=== PATIENT | male | born 1985 | race Caucasian/White ===

== ENCOUNTER 2022-09-21 19:31 | Emergency (ER) | payer OTHER ==
[~2022-09-21] VITALS: Ht 182.9 cm; Wt 66.4 kg
[~2022-09-21 19:31] MED LIST: ALBU90I INH; ALBU90OI INH; AMOX500 PO; BENZ10TG MC; CITA10S PO; CYCL10 PO; Cephalexin250 MG/5 M PO; DIAZ5 PO; FAMO40 PO; HYDACE5 PO; HYDACE5325 PO; IBUHYD PO; IBUP800; IBUP800 PO; KETO10 PO; Monodox100 MG PO; NAPR550 PO; OMEP20ER PO; ONDA4ODT MM; OXYACE5T PO; PENVK500 PO; PROM25 PO; RANI150 PO; RXNAPNA550 PO; RXOXYACE PO; RXPROM25 PO; SPACE CHAMBER1 EACH MC; SULTRIDS PO; TRAM50 PO; Ultram50 MG PO
[2022-09-21 19:41] VITALS: BP 149/95
[2022-09-21] MEDS ORDERED: PREG150 PO (21:37)
== END 2022-09-21 21:52 | disposition home or self-care (01) ==
LOC: ER 19:31
DX: G62.9 Polyneuropathy, unspecified (principal); F17.210 Nicotine dependence, cigarettes, uncomplicated; Z79.899 Other long term (current) drug therapy
CPT/HCPCS: 99283; A9270

== ENCOUNTER 2022-10-15 17:02 | Emergency (ER) | payer OTHER ==
[~2022-10-15] VITALS: Ht 182.9 cm; Wt 72.6 kg
[~2022-10-15 17:02] MED LIST changes: +PREG150 PO
[2022-10-15 17:33] VITALS: BP 123/91
[2022-10-15 17:44] LABS: BASOPHILS ABSOLUTE AUTO 0.08 K/mm3 (0.00-0.23); BASOPHILS PERCENT AUTO 2 % (0-2); EOSINOPHILS ABSOLUTE AUTO 0.12 K/mm3 (0.00-0.68); EOSINOPHILS PERCENT AUTO 3 % (0-6); Hematocrit 45.6 % (37.0-53.0); IMMATURE GRAN ABSOLUTE AUTO 0.02 K/mm3 (0.00-0.10); IMMATURE GRAN PERCENT AUTO 0 % (0-1); LYMPHOCYTES ABSOLUTE AUTO 1.25 K/mm3 (0.84-5.20); LYMPHOCYTES PERCENT AUTO 26 % (21-46); MONOCYTES ABSOLUTE AUTO 0.25 K/mm3 (0.16-1.47); MONOCYTES PERCENT AUTO 5 % (4-13); Mean Corpuscular HGB 30.6 pg (26.0-34.0); Mean Corpuscular HGB Conc 35.1 g/dL (31.5-36.5); Mean Corpuscular Volume 87 fL (80-100); Mean Platelet Volume 9.4 fL (9.1-12.4); NEUTROPHILS ABSOLUTE AUTO 3.03 K/mm3 (1.96-9.15); NEUTROPHILS PERCENT AUTO 64 % (41-73); Platelet Count 202 K/mm3 (150-400); RDW Coefficient Variation 13.5 % (11.7-14.2); RDW Standard Deviation 42.5 fL (35.1-46.3); Red Blood Cell Count 5.23 M/mm3 (4.30-5.90); White Blood Cell Count 4.75 K/mm3 (4.00-11.30)
[2022-10-15 18:09] LABS: Albumin, Blood 3.3 g/dL (3.4-5.0); Albumin/Globulin Ratio 0.9 (0.8-1.8); Bilirubin, Total 0.3 mg/dL (0.1-1.0); Bun/Creatinine Ratio 11.4 (12.0-20.0); Calcium, Blood 8.2 mg/dL (8.5-10.1); Creatinine, Blood 0.96 mg/dL (0.60-1.20); Globulin, Blood 3.8 g/dL (2.2-4.0); Potassium, Blood 3.5 mmol/L (3.5-5.5); Total Protein, Blood 7.1 g/dL (6.4-8.2)
== END 2022-10-15 19:02 | disposition home or self-care (01) ==
LOC: ER 17:02
PROVIDERS: Physician Assistant
DX: F15.959 Other stimulant use, unspecified with stimulant-induced psychotic disorder, unspecified (principal); K21.9 Gastro-esophageal reflux disease without esophagitis; F17.200 Nicotine dependence, unspecified, uncomplicated
CPT/HCPCS: 80053; 83690; 85025; J7030

== ENCOUNTER 2024-01-06 04:07 | Emergency (ER) | payer OTHER ==
[~2024-01-06] VITALS: Ht 182.9 cm; Wt 68.0 kg
[2024-01-06 04:12] VITALS: BP 113/82
[2024-01-06] MEDS ORDERED: Ketorolac Tromethamine 15mg Vial IM ONE (04:55)
[2024-01-06 04:59] LABS: BASOPHILS ABSOLUTE AUTO 0.02 K/mm3 (0.00-0.23); BASOPHILS PERCENT AUTO 0 % (0-2); EOSINOPHILS ABSOLUTE AUTO 0.07 K/mm3 (0.00-0.68); EOSINOPHILS PERCENT AUTO 1 % (0-6); Hematocrit 34.4 % (37.0-53.0); Hemoglobin 11.5 g/dL (13.5-17.5); IMMATURE GRAN ABSOLUTE AUTO 0.02 K/mm3 (0.00-0.10); IMMATURE GRAN PERCENT AUTO 0 % (0-1); LYMPHOCYTES ABSOLUTE AUTO 1.59 K/mm3 (0.84-5.20); LYMPHOCYTES PERCENT AUTO 31 % (21-46); MONOCYTES ABSOLUTE AUTO 0.61 K/mm3 (0.16-1.47); MONOCYTES PERCENT AUTO 12 % (4-13); Mean Corpuscular HGB 27.8 pg (26.0-34.0); Mean Corpuscular HGB Conc 33.4 g/dL (31.5-36.5); Mean Corpuscular Volume 83 fL (80-100); Mean Platelet Volume 9.8 fL (9.1-12.4); NEUTROPHILS ABSOLUTE AUTO 2.77 K/mm3 (1.96-9.15); NEUTROPHILS PERCENT AUTO 55 % (41-73); Platelet Count 229 K/mm3 (150-400); RDW Coefficient Variation 16.8 % (11.7-14.2); RDW Standard Deviation 51.5 fL (35.1-46.3); Red Blood Cell Count 4.13 M/mm3 (4.30-5.90); White Blood Cell Count 5.08 K/mm3 (4.00-11.30)
[2024-01-06 05:21] LABS: Albumin/Globulin Ratio 0.6 (0.8-1.8); Bilirubin, Total 0.4 mg/dL (0.1-1.0); Bun/Creatinine Ratio 16.9 (12.0-20.0); C-REACTIVE PROTEIN, EXT RANGE 4.64 mg/dL (0.000-0.300); Calcium, Blood 8.4 mg/dL (8.5-10.1); Creatinine, Blood 0.95 mg/dL (0.60-1.20); Globulin, Blood 5.2 g/dL (2.2-4.0); Potassium, Blood 3.6 mmol/L (3.5-5.5); Total Protein, Blood 8.2 g/dL (6.4-8.2)
[2024-01-06] MEDS ORDERED: CEPH500 PO (06:09)
[2024-01-06] MEDS ORDERED: SULTRIDS PO (06:09)
== END 2024-01-06 06:34 | disposition home or self-care (01) ==
LOC: ER 04:07
PROVIDERS: Physician Assistant
DX: L02.611 Cutaneous abscess of right foot (principal); L03.115 Cellulitis of right lower limb; B20 Human immunodeficiency virus [HIV] disease; F43.10 Post-traumatic stress disorder, unspecified; K21.9 Gastro-esophageal reflux disease without esophagitis; F17.210 Nicotine dependence, cigarettes, uncomplicated; Z79.899 Other long term (current) drug therapy
CPT/HCPCS: 10060; 73630; 80053; 85025; 85651; 86140; 86592; 96372; 99283-25; J1885

== ENCOUNTER → 2024-02-11 | Outpatient (CLI) | payer OTHER ==
[~2024-02-11] MED LIST changes: +CEPH500 PO
== END ==
LOC: LAB 19:04 → LAB SHORT 19:04
DX: L02.416 Cutaneous abscess of left lower limb (principal)
CPT/HCPCS: 87070; 87075; 87077; 87186; 87205

== ENCOUNTER → 2024-04-02 | Outpatient (CLI) | payer OTHER | LOC: LAB SHORT 17:41 → LAB 17:41 | DX: L03.119 Cellulitis of unspecified part of limb (principal) | CPT/HCPCS: 87070; 87077; 87147; 87186; 87205 ==

== ENCOUNTER 2024-11-22 23:17 | Inpatient (IN) | payer OTHER ==
[~2024-11-22] VITALS: Ht 180.3 cm; Wt 46.9 kg
[2024-11-23] MEDS ORDERED: Ondansetron HCl 2 MG / ML 2ML Vial IV ONE (00:40)
[2024-11-23 01:00] LABS: BASOPHILS ABSOLUTE AUTO 0.04 K/mm3 (0.00-0.23); BASOPHILS PERCENT AUTO 1 % (0-2); EOSINOPHILS ABSOLUTE AUTO 0.01 K/mm3 (0.00-0.68); EOSINOPHILS PERCENT AUTO 0 % (0-6); Hematocrit 26.6 % (37.0-53.0); Hemoglobin 8.6 g/dL (13.5-17.5); IMMATURE GRAN ABSOLUTE AUTO 0.06 K/mm3 (0.00-0.10); IMMATURE GRAN PERCENT AUTO 1 % (0-1); LYMPHOCYTES ABSOLUTE AUTO 0.81 K/mm3 (0.84-5.20); LYMPHOCYTES PERCENT AUTO 11 % (21-46); MONOCYTES ABSOLUTE AUTO 0.62 K/mm3 (0.16-1.47); MONOCYTES PERCENT AUTO 9 % (4-13); Mean Corpuscular HGB Conc 32.3 g/dL (31.5-36.5); Mean Corpuscular Volume 83 fL (80-100); NEUTROPHILS ABSOLUTE AUTO 5.71 K/mm3 (1.96-9.15); NEUTROPHILS PERCENT AUTO 79 % (41-73); NRBC ABSOLUTE 0.00 K/mm3 (0.00-0.02); NRBC Auto 0.0 /100 WBC (0.0-0.2); Platelet Count 265 K/mm3 (150-400); RDW Coefficient Variation 18.1 % (11.7-14.2); RDW Standard Deviation 55.3 fL (35.1-46.3)
[2024-11-23 01:20] LABS: Alanine Aminotransfer (ALT/SGP 12.0 U/L (12-78); Albumin, Blood 1.6 g/dL (3.4-5.0); Albumin/Globulin Ratio 0.3 (0.8-1.8); Anion Gap 8.0 mmol/L (3-11); Aspartate Aminotrans (AST/SGOT 17.0 U/L (12-37); Bilirubin, Total 0.1 mg/dL (0.1-1.0); Blood Urea Nitrogen 15.0 mg/dL (8-24); CO2, Blood 28.0 mmol/L (21-32); Calcium, Blood 7.9 mg/dL (8.5-10.1); Chloride, Blood 95.0 mmol/L (98-108); Creatinine, Blood 0.86 mg/dL (0.60-1.20); Globulin, Blood 5.5 g/dL (2.2-4.0); Glucose, Blood 120.0 mg/dL (70-99); Potassium, Blood 4.2 mmol/L (3.5-5.5); Sodium, Blood 127.0 mmol/L (136-145); Total Protein, Blood 7.1 g/dL (6.4-8.2)
[2024-11-23] MEDS ORDERED: OXYC5 PO (03:48)
[2024-11-23] MEDS ORDERED: METO5A PO ×2 (03:52→17:01)
[2024-11-23] MEDS ORDERED: BUSP10 PO (03:57)
[2024-11-23] MEDS ORDERED: BIKTARVY 50-201 EAC1 PO ×2 (03:59→16:48)
[2024-11-23] MEDS ORDERED: HYDROmorphone HCl/Pf 1MG SYR IV PRN (04:20)
[2024-11-23] MEDS ORDERED: OxyCODONE 7.5 mg/Acetam 325 mg TABLET PO PRN (04:25)
[2024-11-23] MEDS ORDERED: NS 1,000 ML IV SCH ×2 (04:25→11:25)
[2024-11-23 04:38] VITALS: BP 89/61
[2024-11-23] MEDS ORDERED: Albuterol HFA200 ACT/6.7 GM INH INH PRN (04:50)
[2024-11-23] MEDS ORDERED: Phenol/Sodium Phenolate Oral Spray 180 ML MM PRN (05:00)
[2024-11-23] MEDS ORDERED: ESCI20 PO (05:10)
[2024-11-23] MEDS ORDERED: FOLI1 PT (05:11)
[2024-11-23] MEDS ORDERED: MIRT15ST PO ×2 (05:11→17:02)
[2024-11-23] MEDS ORDERED: SULTRIL10 PO (05:12)
[2024-11-23] MEDS ORDERED: B-1100 M1 PO ×2 (05:12→17:08)
[2024-11-23] MEDS ORDERED: TIVICAY50 MG PO (05:14)
[2024-11-23] MEDS ORDERED: DRON5 PO (05:14)
[2024-11-23] MEDS ORDERED: Prevacid Soluta30 MG JT (05:16)
[2024-11-23] MEDS ORDERED: EMTRICITABINE-1 EACH PO (05:16)
[2024-11-23] MEDS ORDERED: [UNRECOGNIZED DRUG - OTHER] PO (05:19)
[2024-11-23] MEDS ORDERED: OLAN5 PO ×2 (05:19→17:05)
[2024-11-23 07:46] LABS: Anion Gap 7.0 mmol/L (3-11); Blood Urea Nitrogen 15.0 mg/dL (8-24); CO2, Blood 30.0 mmol/L (21-32); Calcium, Blood 8.1 mg/dL (8.5-10.1); Chloride, Blood 95.0 mmol/L (98-108); Creatinine, Blood 0.79 mg/dL (0.60-1.20); Glucose, Blood 112.0 mg/dL (70-99); Potassium, Blood 4.3 mmol/L (3.5-5.5); Sodium, Blood 128.0 mmol/L (136-145)
[2024-11-23 07:57] VITALS: BP 101/68
[2024-11-23 08:30] LABS: Ferritin, Serum 1952.0 ng/mL (26-388); Total Iron Binding Capacity 160.0 ug/dL (250-450)
[2024-11-23] MEDS ORDERED: Misc. Tablet PO SCH (09:00)
[2024-11-23] MEDS ORDERED: Enoxaparin 40 MG/0.4 ML SYR SC SCH (09:00)
[2024-11-23] MEDS ORDERED: Magnesium Hydroxide Conc 10 ML UDC PT PRN (10:55)
[2024-11-23] MEDS ORDERED: Docusate Sodium Liquid 100 MG UDC PT PRN (10:55)
[2024-11-23] MEDS ORDERED: Cyanocobalamin 1000 MCG/ML 1ML Vial IM SCH (13:00)
[2024-11-23] MEDS ORDERED: Protein Supplement 30 ML UD PT SCH (14:00)
[2024-11-23 15:12] VITALS: BP 103/75
[2024-11-23] MEDS ORDERED: ACET500 PO (16:44)
[2024-11-23] MEDS ORDERED: AZIT250 PO ×2 (16:45)
[2024-11-23] MEDS ORDERED: BENMENLOZ (16:46)
[2024-11-23] MEDS ORDERED: Cyclobenzaprine5 MG PO (16:49)
[2024-11-23] MEDS ORDERED: HYDMOR2 PO (16:53)
[2024-11-23] MEDS ORDERED: IBUP800 PO (16:54)
[2024-11-23] MEDS ORDERED: Prevacid Soluta30 MG PO (16:56)
[2024-11-23] MEDS ORDERED: IMODIUM A-D2 M1 PO (16:59)
[2024-11-23] MEDS ORDERED: Ativan1 MG PO (17:00)
[2024-11-23] MEDS ORDERED: MIDO5 PO (17:02)
[2024-11-23] MEDS ORDERED: NICO21TP TOP (17:04)
[2024-11-23] MEDS ORDERED: MUPIROCIN1 G1 TOP (17:04)
[2024-11-23] MEDS ORDERED: PRAZ2 PO (17:06)
[2024-11-23] MEDS ORDERED: RIFA300 PO (17:06)
[2024-11-23] MEDS ORDERED: SODBIC650 PO (17:07)
[2024-11-23] MEDS ORDERED: TERB250 PO (17:08)
[2024-11-23] MEDS ORDERED: TRAZ50 PO (17:09)
--- NOTE | 2024-11-23 18:35 | NUR ---
SHIFT SUMMARY PT AOX4, COOPERATIVE, ABLE TO MAKE NEEDS KNOWN. PT IS 1 PERSON ASSIST BUT UNABLE TO WALK DUE TO PAIN IN FEET. PEG TUBE FEEDINGS PER ORDER 65ML CONT WITH 30ML FLUSH Q4H. NS RUNNING 150ML/HR PER ORDER FOR HYPONATREMIA. PT ON ISO FOR HX OF MRSA IN 2023, NO CURRENT OPEN AREAS. BED IN LOWEST POSITION, CALL LIGHT WITHIN REACH.
[2024-11-23 20:12] VITALS: BP 106/70
[2024-11-24 02:59] VITALS: BP 105/79
--- NOTE | 2024-11-24 05:05 | NUR ---
SHIFT SUMMARY PATIENT A/OX4, PLEASANT AND COOPERATIVE THROUGHOUT SHIFT. MEDICATED FOR PAIN PER EMAR. PT REPORTED NAUSEA, FEEDING PAUSED X1 HOUR PER PT REQUEST AND PT WAS GIVEN PHENERGAN PER EMAR. NO ACUTE CHANGES THROUGHOUT SHIFT. VOIDING WELL. CALL LIGHT IN REACH, BED IN LOWEST POSITION. WILL REPORT TO ONCOMING RN.
[2024-11-24 08:13] VITALS: BP 107/77
[2024-11-24 14:01] LABS: BASOPHILS ABSOLUTE AUTO 0.04 K/mm3 (0.00-0.23); BASOPHILS PERCENT AUTO 1 % (0-2); EOSINOPHILS ABSOLUTE AUTO 0.01 K/mm3 (0.00-0.68); EOSINOPHILS PERCENT AUTO 0 % (0-6); Hematocrit 28.7 % (37.0-53.0); Hemoglobin 9.1 g/dL (13.5-17.5); IMMATURE GRAN ABSOLUTE AUTO 0.09 K/mm3 (0.00-0.10); IMMATURE GRAN PERCENT AUTO 1 % (0-1); LYMPHOCYTES ABSOLUTE AUTO 0.94 K/mm3 (0.84-5.20); LYMPHOCYTES PERCENT AUTO 11 % (21-46); MONOCYTES ABSOLUTE AUTO 0.57 K/mm3 (0.16-1.47); MONOCYTES PERCENT AUTO 7 % (4-13); Mean Corpuscular HGB Conc 31.7 g/dL (31.5-36.5); Mean Corpuscular Volume 85 fL (80-100); NEUTROPHILS ABSOLUTE AUTO 6.89 K/mm3 (1.96-9.15); NEUTROPHILS PERCENT AUTO 81 % (41-73); NRBC ABSOLUTE 0.00 K/mm3 (0.00-0.02); NRBC Auto 0.0 /100 WBC (0.0-0.2); Platelet Count 323 K/mm3 (150-400); RDW Coefficient Variation 18.2 % (11.7-14.2); RDW Standard Deviation 56.2 fL (35.1-46.3)
[2024-11-24 14:19] LABS: Anion Gap 8.0 mmol/L (3-11); Blood Urea Nitrogen 14.0 mg/dL (8-24); CO2, Blood 28.0 mmol/L (21-32); Calcium, Blood 8.3 mg/dL (8.5-10.1); Chloride, Blood 98.0 mmol/L (98-108); Creatinine, Blood 0.64 mg/dL (0.60-1.20); Glucose, Blood 75.0 mg/dL (70-99); Magnesium, Blood 1.9 mg/dL (1.6-2.4); Phosphorus, Blood 3.1 mg/dL (2.5-4.9); Potassium, Blood 4.0 mmol/L (3.5-5.5); Sodium, Blood 130.0 mmol/L (136-145)
[2024-11-24] MEDS ORDERED: [UNRECOGNIZED DRUG - OTHER] PO SCH (16:00)
--- NOTE | 2024-11-24 19:19 | NUR ---
PT A&OX4, VSS, RA, NON TELE. MEDS CRUSHED IN PEG TUBE. LOOSE BM X2. TUBE FEEDING PAUSED FOR ABDOMINAL DISCOMFORT, NOTIFIED. 1PA TO BSC. PT WORKED WITH PATIENT WALKED IN HALLS. ORAL INTAKE IMPROVING. CALL LIGHT IN REACH.
[2024-11-24 19:24] VITALS: BP 93/61
[2024-11-25 02:56] VITALS: BP 104/71
--- NOTE | 2024-11-25 04:38 | NUR ---
CHRIS SUMMARY PATIENT A/OX4. PLEASANT AND COOPERATIVE WITH CARE. PT REPORTS ABDOMINAL DISCOMFORT AND REQUESTED THAT HIS FEEDING BE PUT ON HOLD. NAUSEA MEDICATION GIVEN WITH MEDICATIONS VIA PEG TUBE. MEDICATED WITH PAIN MEDICATION AT SCHEDULED TIME AND NO OTHER COMPLAINTS OF PAIN. VITAL SIGNS STABLE. PT EATING FOOD PO THROUGHOUT SHIFT AND DRINKING WATER. NO ACUTE CHANGES THROUGHOUT SHIFT. CALL LIGHT IN REACH AND BED IN LOWEST POSITION. WILL REPORT TO ONCOMING RN.
[2024-11-25 07:03] LABS: Anion Gap 8.0 mmol/L (3-11); Blood Urea Nitrogen 12.0 mg/dL (8-24); CO2, Blood 25.0 mmol/L (21-32); Calcium, Blood 7.8 mg/dL (8.5-10.1); Chloride, Blood 107.0 mmol/L (98-108); Creatinine, Blood 0.71 mg/dL (0.60-1.20); Glucose, Blood 84.0 mg/dL (70-99); Magnesium, Blood 2.0 mg/dL (1.6-2.4); Phosphorus, Blood 3.1 mg/dL (2.5-4.9); Potassium, Blood 3.9 mmol/L (3.5-5.5); Sodium, Blood 136.0 mmol/L (136-145)
[2024-11-25 08:07] VITALS: BP 113/82
[2024-11-25] MEDS ORDERED: [UNRECOGNIZED DRUG - OTHER] PO SCH (08:30)
[2024-11-25] MEDS ORDERED: Trimethoprim 80MG/Sulfamethoxazole 400MG/10ML UDC PO SCH (09:00)
[2024-11-25] MEDS ORDERED: Nystatin 100,000 Unit/ML Susp 5 ML UDC PO SCH (09:00)
[2024-11-25] MEDS ORDERED: Folic Acid 1 MG TAB PT SCH (09:00)
[2024-11-25 15:06] VITALS: BP 105/69
--- NOTE | 2024-11-25 15:37 | NUR ---
Upon receiving a referral for spiritual care, I visited the patient. The patient immediately tells me about his medical issues, the of his by suicide and the slippery slope he has been on emotionally since his . He tells me that he if goes back home by himself he "will not survive." He also shares about his spiritual distress and the love/hate relationship that he has with God. We unpack that idea a bit as I supply some theological insights. He also requests to have a Bible, so I go down to the spiritual care office to acquire a Bible for him. He voices great appreciation for it. I also provided spiritual guidance and prayer. The patient responded well and showed signs of greater peace with God and man. I will continue to remain available to the patient and the family.
[2024-11-25] MEDS ORDERED: B-12500 MC2 PO (16:02)
[2024-11-25] MEDS ORDERED: NYSTATIN100000 U13 MT (16:04)
[2024-11-25] MEDS ORDERED: ONDA4 PO (16:04)
[2024-11-25] MEDS ORDERED: LIQUICEL PT (16:07)
[2024-11-25 19:39] VITALS: BP 123/91
--- NOTE | 2024-11-25 19:48 | NUR ---
SHIFT SUMMARY PT A&OX4, VSS, RA, NON-TELE. COOPERATIVE WITH CARE. TUBE FEED HELD UNTIL AFTERNOON D/T ABDOMINAL DISCOMFORT. PT ATE BREAKFAST, FAMILY BROUGHT IN SPANISH FOOD FOR PT LUNCH. PT HAD ONE LOOSE BM THIS SHIFT, URINATING IN URINAL, ACTIVITY ENCOURAGED. CALL LIGHT IN REACH.
[2024-11-26 02:37] VITALS: BP 107/63
--- NOTE | 2024-11-26 04:38 | NUR ---
SHIFT SUMMARY PATIENT A/OX4. PLEASANT AND COOPERATIVE WITH CARE. VITAL SIGNS REMAINED STABLE THROUGHOUT THE SHIFT. PATIENT ABLE TO TOLERATE PO INTAKE, WHILE HIS TUBE FEEDING IS TURNED OFF. ALL MEDICATIONS GIVEN VIA PEG TUBE. NS RUNNING AT 150 MLS/HR. TUBE FEEDING RESTARTED THIS AM AT APPROX 0330. PT TOLERATING WELL. MEDICATED FOR PAIN PER EMAR. VOIDING WELL, IND WITH THE URINAL. NO ACUTE CHANGES THROUGHOUT SHIFT. CALL LIGHT IN REACH AND BED IN LOWEST POSITION. WILL REPORT TO ONCOMING RN.
[2024-11-26 06:37] LABS: Anion Gap 8.0 mmol/L (3-11); Blood Urea Nitrogen 9.0 mg/dL (8-24); CO2, Blood 23.0 mmol/L (21-32); Calcium, Blood 7.5 mg/dL (8.5-10.1); Chloride, Blood 111.0 mmol/L (98-108); Creatinine, Blood 0.74 mg/dL (0.60-1.20); Glucose, Blood 93.0 mg/dL (70-99); Magnesium, Blood 1.7 mg/dL (1.6-2.4); Phosphorus, Blood 3.0 mg/dL (2.5-4.9); Potassium, Blood 3.4 mmol/L (3.5-5.5); Sodium, Blood 139.0 mmol/L (136-145)
[2024-11-26 07:44] VITALS: BP 116/82
[2024-11-26] MEDS ORDERED: Metoclopramide HCl 5MG / ML 2ML Vial IV PRN (13:55)
[2024-11-26] MEDS ORDERED: Trimethoprim/Sulfamethoxazole DS Tab PO ONE (15:55)
[2024-11-26 16:00] VITALS: BP 115/78
[2024-11-26] MEDS ORDERED: Emtricitabine/Tenofovir (TDF) 200-300mg 1 TAB PO SCH (17:00)
[2024-11-26] MEDS ORDERED: Azithromycin 200 MG/5 ML SUSP 5ML UDC PO SCH (18:00)
[2024-11-26] MEDS ORDERED: Simethicone 40 MG/0.6 ML 30ML BTL PT PRN (19:45)
[2024-11-26 19:57] VITALS: BP 119/79
--- NOTE | 2024-11-26 20:46 | NUR ---
SHIFT SUMMARY- PT HAS HAD MANY CHANGES T/O THJE SHIFT. MEDICATED WITH PRN PAIN AND NAUSEA MEDS. HE HAD A TELEHEALTH APPOINTMENT. DR DOUGLAS AND HIS TEAM WERE PROVIDED WITH THE CONTACT INFO FOR DR LITTLEJOHN THE PT INFECTIOUS DISEASE DR FROM [facility]. HE HAD SUGGESTIONS FOR LAB WORK, AND MEDICATIONS THAT THE PT NEEDS FOR HIS HIV. BEDSIDE REPORT COMPLETED WITH THE NIGHT RN. THE PT HAS MEDS ORDERED BUT THIS RN WAS UNABLE TO ADMINISTER D/T EMERGENT ISSUES WITH OTHER PATIENTS. NIGHT RN IS AWARE AND WILL ADMINISTER.
[2024-11-27 04:42] VITALS: BP 125/83
--- NOTE | 2024-11-27 05:31 | NUR ---
SHIFT SUMMARY: Pt is admitted for hyponatremia and is a full code. Is alert and about to make needs known. Pain has been managed with PRN medications. On ISO for MRSA. iv to right AC is patent and running ns at 150.
[2024-11-27] MEDS ORDERED: TENOFOVIR PO SCH (09:00)
[2024-11-27] MEDS ORDERED: EMTRICITABINE PO SCH (09:00)
[2024-11-27 09:17] VITALS: BP 116/85
--- NOTE | 2024-11-27 18:28 | NUR ---
SHIFT SUMMARY- PT ALERT ANND ORIENTED, HE HAS BEEN INDEPENDENT IN THE ALBERTO WITH THE FWW AND GATE BELT. PT HAS NOT BEEN TOLLERATING HIS TUBE FEEDINGS VERY WELL. HE HAD THREE SMALL RED SPOTS ON HIS RIGHT SIDE YESTERDAY. THIS EVENING HE WAS NOT WEARING HIS GOWN AND WAS VISITING WITH FAMILY HE CALLED FOR THE RN TO LOOK AT SOME PAINFULLL SPOTS ON HIS SIDE. UPON LOOKING AT THE SPOTS THEY WERE NOTED TO BE RAISED AND FLUID FILLED. THE PT STATES THEY ARE VERY PAINFUL AND THEN STATED "I HOPE THEY ARE NOT SHINGLES AGAIN, I'VE HAD THOSE BEFORE AND THEY HURT." CALLED DR DOUGLAS AND SPOKE TO HIM. HE STATED TO PLACE THE PT INTO ISOLATION FOR SHINGLES AND HE WILL DO AN ASSESSMENT OF THE AREA TOMORROW MORNING. PT WAS TRANSFERED TO ROOM 335 FOR AIRBORN PRECAUTIONS. PT IS UP IN THE ROOM INDEPENDENT. TUBE FEEDINGS WERE CHANGED TO NIGHT TIME FEEDINGS. PT IN THE ROOM WITH HIS VISITORS NO S&S OF DISTRESS AT THIS TIME.
[2024-11-27 20:35] VITALS: BP 114/71
[2024-11-27] MEDS ORDERED: Protein Supplement 30 ML UD PT SCH (21:00)
[2024-11-28 04:42] VITALS: BP 120/75
--- NOTE | 2024-11-28 06:26 | NUR ---
SHIFT SUMMARY: Pt is admitted for hyponatremia and is a full code. Is alert and about to make needs known. Pain has been managed with PRN medications. On ISO for MRSA and shingals. iv to right AC is patent and running ns at 150. Has J/G tube placed. Has been running jevity 1.2 at 80ml/h through the night.
[2024-11-28 07:33] VITALS: BP 97/62
[2024-11-28 08:01] LABS: Anion Gap 8.0 mmol/L (3-11); Blood Urea Nitrogen 11.0 mg/dL (8-24); CO2, Blood 22.0 mmol/L (21-32); Calcium, Blood 7.9 mg/dL (8.5-10.1); Chloride, Blood 109.0 mmol/L (98-108); Creatinine, Blood 0.76 mg/dL (0.60-1.20); Glucose, Blood 90.0 mg/dL (70-99); Potassium, Blood 4.1 mmol/L (3.5-5.5); Sodium, Blood 135.0 mmol/L (136-145)
[2024-11-28] MEDS ORDERED: Trimethoprim/Sulfamethoxazole DS Tab PO SCH (09:00)
[2024-11-28] MEDS ORDERED: ACYCLOVIR IV SCH (10:33)
[2024-11-28] MEDS ORDERED: DEXTROSE 5% IV SCH (10:33)
[2024-11-28 15:05] VITALS: BP 125/75
[2024-11-28 16:21] LABS: % CD4 7 % (32-64); ABSOLUTE CD4 77 cells/uL (430-1800)
--- NOTE | 2024-11-28 18:28 | NUR ---
SHIFT SUMMARY PATIENT A/OX4, ABLE TO MAKE NEEDS KNOWN. PLEASANT AND COOPERATIVE WITH CARE HOWEVER, WITHDRAWN AT TIMES. PATIENT TOLERATING MEALS WELL, REQUESTING SNACKS. J/G TUBE IN PLACE, FUNCTIONING PROPERLY WITH MEDICATION ADMINISTRATION. TUBE FEEDING NIGHTLY. IV FLUIDS RUNNING PER JUL. ON AIRBORN PRECAUTIONS FOR ACTIVE SHINGLES RASH. RASH TO RIGHT ABDOMEN AND FLANK, FLUID FILLED BLISTERS. ACOCLOVYR STARTED TODAY WELL PATIENT S LYRICA BEING INCREASED. PATIENT COMPLAINING OF DIARRHEA THROUGHOUT THE SHIFT. PRN IMMODIUM ADMINISTERED PER JUL. ALSO COMPLAINING OF ANXIETY THIS AFTERNOON, PRN ATIVAN ADMINISTERED PER JUL. SCHEDULED OXYCODONE INCREASED THIS SHIFT, AND HAS BEEN EFFECTIVE IN MANAGING PATIENT S CHRONIC BACK PAIN WELL SHINGLES RASH PAIN. NO OTHER CONCERNS AT THIS TIME, WILL CONTINUE TO MONITOR.
[2024-11-28 19:12] VITALS: BP 118/75
[2024-11-29 04:53] VITALS: BP 108/72
--- NOTE | 2024-11-29 06:27 | NUR ---
SUMMARY A&O 4, VSS. ASKED FOR WATER & ROOT BEER TRYING TO DRINK ORALLY AND OATMEAL AT [place]. STILL HAVING PERSISTENT PAIN VERBALISING PS OF 8-9 ALMOST 4 HOURLY REQ FOR PAIN MEDS. CONT IV HYDRATION & ABX. PT DETERMINED AND ADHERENT TO TX REGIMEN.
[2024-11-29 07:13] VITALS: BP 114/70
[2024-11-29 07:30] LABS: BASOPHILS ABSOLUTE AUTO 0.04 K/mm3 (0.00-0.23); BASOPHILS PERCENT AUTO 1 % (0-2); EOSINOPHILS ABSOLUTE AUTO 0.07 K/mm3 (0.00-0.68); EOSINOPHILS PERCENT AUTO 2 % (0-6); Hematocrit 24.4 % (37.0-53.0); Hemoglobin 7.9 g/dL (13.5-17.5); IMMATURE GRAN ABSOLUTE AUTO 0.02 K/mm3 (0.00-0.10); IMMATURE GRAN PERCENT AUTO 0 % (0-1); LYMPHOCYTES ABSOLUTE AUTO 0.89 K/mm3 (0.84-5.20); LYMPHOCYTES PERCENT AUTO 19 % (21-46); MONOCYTES ABSOLUTE AUTO 0.47 K/mm3 (0.16-1.47); MONOCYTES PERCENT AUTO 10 % (4-13); Mean Corpuscular HGB Conc 32.4 g/dL (31.5-36.5); Mean Corpuscular Volume 85 fL (80-100); NEUTROPHILS ABSOLUTE AUTO 3.11 K/mm3 (1.96-9.15); NEUTROPHILS PERCENT AUTO 68 % (41-73); NRBC ABSOLUTE 0.00 K/mm3 (0.00-0.02); NRBC Auto 0.0 /100 WBC (0.0-0.2); Platelet Count 313 K/mm3 (150-400); RDW Coefficient Variation 19.1 % (11.7-14.2); RDW Standard Deviation 59.3 fL (35.1-46.3)
[2024-11-29 07:45] LABS: Anion Gap 8.0 mmol/L (3-11); Blood Urea Nitrogen 13.0 mg/dL (8-24); CO2, Blood 23.0 mmol/L (21-32); Calcium, Blood 7.9 mg/dL (8.5-10.1); Chloride, Blood 109.0 mmol/L (98-108); Creatinine, Blood 0.8 mg/dL (0.60-1.20); Glucose, Blood 94.0 mg/dL (70-99); Potassium, Blood 4.0 mmol/L (3.5-5.5); Sodium, Blood 136.0 mmol/L (136-145)
[2024-11-29] MEDS ORDERED: Lidocaine HCl 4% Cream 5 GM TOP SCH (12:00)
[2024-11-29 15:05] VITALS: BP 110/74
[2024-11-29] MEDS ORDERED: [UNRECOGNIZED DRUG - OTHER] PO SCH ×2 (15:40→15:43)
[2024-11-29] MEDS ORDERED: EMTRICITABINE PO SCH ×2 (15:40→15:43)
[2024-11-29] MEDS ORDERED: BICTEGRAVIR PO SCH ×2 (15:40→15:43)
[2024-11-29] MEDS ORDERED: Ketorolac Tromethamine 15mg Vial IV PRN (15:40)
--- NOTE | 2024-11-29 16:21 | NUR ---
SHIFT SUMMARY: PATIENT RECEIVED HIS FIRST DOSE OF ANTIRETROVIRALS MED THIS PM PER ORDER. PATIENT SHINGLES RASH, FILLED FLUID BLISTER APPEARING TO HIS R SIDE ABDOMEN AND FLANK AREA SKIN STILL INTACT. PATIENT MEDICATED FOR PAIN AND COLD PACK PER ORDER MOD EFFECT. PATIENT MEDS GIVEN VIA J/G TUBE PER REQUEST, TOLERATING ALL MEALS AND SNACKS WELL WITHOUT ANY DIFFICULTY SWALLOWING. PATIENT STILL ON TF AT NIGHT FOR NUTRITIONAL SUPPORT. PATIENT A/OX4, HAS FLAT AFFECT AND APPEARS WITHDRAWN AT TIMES. PATIENT IS PLEASANT AND COOPERATIVE c STAFF, CALLS APPROPRIATELY AND MAKE NEEDS KNOWN. VITAL SIGNS REVIEWED. CALL LIGHT IN REACH.
[2024-11-29 20:07] VITALS: BP 115/86
[2024-11-29 22:48] LABS: HIV-1 QNT BY NAAT (COPIES/ML) 502 cpy/mL; HIV-1 QNT BY NAAT INTERP Detected (Not Detected); HIV-1 QNT NAAT (LOG COPIES/ML) 2.70
[2024-11-30 00:35] LABS: BASOPHILS ABSOLUTE AUTO 0.06 K/mm3 (0.00-0.23); BASOPHILS PERCENT AUTO 1 % (0-2); EOSINOPHILS ABSOLUTE AUTO 0.01 K/mm3 (0.00-0.68); EOSINOPHILS PERCENT AUTO 0 % (0-6); Hematocrit 26.6 % (37.0-53.0); Hemoglobin 8.1 g/dL (13.5-17.5); IMMATURE GRAN ABSOLUTE AUTO 0.07 K/mm3 (0.00-0.10); IMMATURE GRAN PERCENT AUTO 1 % (0-1); LYMPHOCYTES ABSOLUTE AUTO 1.38 K/mm3 (0.84-5.20); LYMPHOCYTES PERCENT AUTO 13 % (21-46); MONOCYTES ABSOLUTE AUTO 0.83 K/mm3 (0.16-1.47); MONOCYTES PERCENT AUTO 8 % (4-13); Mean Corpuscular HGB Conc 30.5 g/dL (31.5-36.5); NEUTROPHILS ABSOLUTE AUTO 8.28 K/mm3 (1.96-9.15); NEUTROPHILS PERCENT AUTO 78 % (41-73); NRBC ABSOLUTE 0.00 K/mm3 (0.00-0.02); NRBC Auto 0.0 /100 WBC (0.0-0.2); Platelet Count 327 K/mm3 (150-400); RDW Coefficient Variation 19.5 % (11.7-14.2); RDW Standard Deviation 64.8 fL (35.1-46.3)
[2024-11-30 00:37] LABS: Mean Corpuscular Volume 90 fL (80-100)
[2024-11-30 01:53] LABS: Magnesium, Blood 1.4 mg/dL (1.6-2.4)
[2024-11-30 01:54] LABS: Ferritin, Serum 1015 ng/mL (26-388); Total Iron Binding Capacity 340 ug/dL (250-450)
[2024-11-30 02:01] LABS: Albumin, Blood 1.8 g/dL (3.4-5.0); Anion Gap 7 mmol/L (3-11); Blood Urea Nitrogen 13 mg/dL (8-24); CO2, Blood 22 mmol/L (21-32); Calcium, Blood 7.9 mg/dL (8.5-10.1); Chloride, Blood 109 mmol/L (98-108); Creatinine, Blood 0.67 mg/dL (0.60-1.20); Glucose, Blood 87 mg/dL (70-99); Phosphorus, Blood 3.5 mg/dL (2.5-4.9); Potassium, Blood 3.7 mmol/L (3.5-5.5); Sodium, Blood 134 mmol/L (136-145)
[2024-11-30] MEDS ORDERED: Magnesium Sulf 2 GM/Water 50ML 50 ML IV ONE (03:15)
--- NOTE | 2024-11-30 06:37 | NUR ---
SHIFT SUMMARY PT SLEPT LONG INTERVALS DURING THE NIGHT. C/O NAUSEA THROUGHOUT SHIFT. TUBE FEED BEGAN AT 1950 PER ORDER, BUT AT 0 PT REQUESTED IT BE STOPPED DUE TO CONTINUED NAUSEA. PT MEDICATED WITH REGLAN AND ZOFRAN PER EMAR. THIS AM AT 0530, PT AGREED TO CONTINUE WITH TUBE FEEDING FOR "A COUPLE OF HOURS". PT MEDICATED FOR PAIN PER EMAR. SHINGLES RASH CONTINUES WITH INTACT BLISTERS TO RIGHT SIDE OF ABDOMEN AND FLANK. IVF CONTINUES PER ORDER. BED IN LOWEST POSITION, CALL LIGHT WITHIN REACH, SIDERAILS UP X2.
[2024-11-30 07:05] VITALS: BP 112/67
[2024-11-30 14:31] VITALS: BP 114/84
--- NOTE | 2024-11-30 18:09 | NUR ---
SHIFT SUMMARY: PATIENT SHINGLE/RASH TO R SIDE AND ABDOMEN APPEARS IMPROVEMENT SOME AREAS DRY/BROWNISH DISCOLORATION. PATIENT REPORTS PAIN 6-7/10, MEDICATED c SCHEDULED AND PRN PER EMAR. PATIENT REPORTS PAIN DOWN TO 3/10 c PAIN REASSESSMENT. OVERALL, PAIN HAS IMPROVED. PATIENT REPORTS OT NAUSEA AT BEGINNING OF SHIFT, MEDICATED c PRN NAUSEA MED c GOOD EFFECT. PATIENT HAS BEEN EATING AND DRINKING WELL THIS SHIFT. PATIENT STILL APPEARS WITHDRAWN AT TIMES, FLAT AFFECT, PLEASANT AND COOPERATIVE c STAFF. VITAL SIGNS REVIEWED. CALL LIGHT IN REACH.
[2024-11-30 19:38] VITALS: BP 114/79
[2024-11-30] MEDS ORDERED: NS 250 ML IV PRN (22:30)
[2024-12-01 03:14] VITALS: BP 117/78
--- NOTE | 2024-12-01 06:06 | NUR ---
SHIFT SUMMARY PT REFUSED TUBE FEEDINGS TONIGHT. AGREED TO DRINK ENSURE, AND DRANK 2 BOTTLES OF ENSURE DURING THE NIGHT. PER REPORT FROM PRIOR SHIFT, PT HAD ASKED IF THE ABOVE PLAN WOULD BE ALLOWED AND ATTENDING PHYSICIAN IS AWARE. PT ALSO ATE 2 SANDWICHES DURING THE NIGHT. PT SLEPT LONG INTERVALS. MEDICATED FOR PAIN AND NAUSEA PER EMAR. INCONT OF SOFT/LOOSE STOOL X1. SHINGLES RASH STARTING TO DARKEN BUT BLISTERS REMAIN. BED IN LOWEST POSITION, CALL LIGHT WITHIN REACH, SIDERAILS UP X2.
[2024-12-01 06:17] LABS: BASOPHILS ABSOLUTE AUTO 0.04 K/mm3 (0.00-0.23); BASOPHILS PERCENT AUTO 1 % (0-2); EOSINOPHILS ABSOLUTE AUTO 0.02 K/mm3 (0.00-0.68); EOSINOPHILS PERCENT AUTO 0 % (0-6); Hematocrit 23.8 % (37.0-53.0); Hemoglobin 7.6 g/dL (13.5-17.5); IMMATURE GRAN ABSOLUTE AUTO 0.04 K/mm3 (0.00-0.10); IMMATURE GRAN PERCENT AUTO 1 % (0-1); LYMPHOCYTES ABSOLUTE AUTO 0.93 K/mm3 (0.84-5.20); LYMPHOCYTES PERCENT AUTO 21 % (21-46); MONOCYTES ABSOLUTE AUTO 0.49 K/mm3 (0.16-1.47); MONOCYTES PERCENT AUTO 11 % (4-13); Mean Corpuscular HGB Conc 31.9 g/dL (31.5-36.5); Mean Corpuscular Volume 86 fL (80-100); NEUTROPHILS ABSOLUTE AUTO 2.97 K/mm3 (1.96-9.15); NEUTROPHILS PERCENT AUTO 66 % (41-73); NRBC ABSOLUTE 0.00 K/mm3 (0.00-0.02); NRBC Auto 0.0 /100 WBC (0.0-0.2); Platelet Count 302 K/mm3 (150-400); RDW Coefficient Variation 19.7 % (11.7-14.2); RDW Standard Deviation 61.9 fL (35.1-46.3)
[2024-12-01 06:43] LABS: Magnesium, Blood 1.9 mg/dL (1.6-2.4)
[2024-12-01 07:01] VITALS: BP 107/74
[2024-12-01 07:05] LABS: Anion Gap 8.0 mmol/L (3-11); Blood Urea Nitrogen 19.0 mg/dL (8-24); CO2, Blood 23.0 mmol/L (21-32); Calcium, Blood 7.9 mg/dL (8.5-10.1); Chloride, Blood 110.0 mmol/L (98-108); Creatinine, Blood 0.83 mg/dL (0.60-1.20); Glucose, Blood 94.0 mg/dL (70-99); Phosphorus, Blood 3.1 mg/dL (2.5-4.9); Potassium, Blood 4.1 mmol/L (3.5-5.5); Sodium, Blood 137.0 mmol/L (136-145)
[2024-12-01] MEDS ORDERED: Folic Acid 1 MG TAB PT SCH (09:00)
--- NOTE | 2024-12-01 09:00 | NUR ---
Pt laying in bed on the phone, a/ox4, pleasant and coopartive with care, follows commands well, reports general pain, lungs are clear t/o, dim in bases, resp even and unlabored, no cough noted, hrr, no edema noted, ppp+2, cap refill<3 sec, vs stable, afebrile, piv to rac site clear and patent, btx4, jtube to abd, flushes well, abd flat soft nontender, voids without diff, skin has shingles rash to left flank around to abd, arley rosales, call light in reach. able to make his needs known and moves himself around in bed.
--- NOTE | 2024-12-01 16:51 | NUR ---
Patient is lying in bed and laert. He tells me about his medical conditions and his hopes for in home care and insurance. He tells me about his challenging life, his struggles in finding his way in the midst of loss and disappointment and the loss of hope because of his constant medical problems. He tells me that he is not sure if he is going home to or to live. We explore sources of hope, medardo and purpose. I highlight his goodness, value and courage. I provided therapeutic listening, pointed out scriptures in his Bible to read (I wrote out sections on a piece of jay) and prayer. The patient responded well and showed signs of greater hope. I will continue to remain available.
[2024-12-01 17:47] VITALS: BP 121/83
--- NOTE | 2024-12-01 19:09 | NUR ---
pt resting in bed most of the day, required pain meds t/o the day, mom came in to visit, pt seems to have a good appetite, is cooperative with care, no acute changes this shift, call light in reach.
[2024-12-01 20:42] VITALS: BP 108/83
[2024-12-02 03:50] VITALS: BP 97/64
--- NOTE | 2024-12-02 03:57 | NUR ---
END OF SHIFT SUMMARY: PT IS AOX4 AND COOPERATIVE WITH CARE. TUBE FEEDING HELD TONIGHT DUE TO PT REFUSING FEEDING AND WANTING TO SUBSITUTE FOR AN ENSURE. PT MEDS CRUSHED AND PUT THROUGH FEEDING TUBE. PT ABLE TO TAKE OXY WHOLE WITH WATER NO PROBLEM BUT REFUSES TO TAKE OTHER MEDS WHOLE. PT RESTING THROUGH OUT NIGHT WITH MINIMAL PRN GIVEN. BED IN LOWEST POSITIONED AND CALL LIGHT IN REACH.
--- NOTE | 2024-12-02 05:14 | NUR ---
NURSE NOTE PT HAD OATMEAL AND A BRENTONWHICH DURING THIS SHIFT.
[2024-12-02 05:47] LABS: Hematocrit 26.3 % (37.0-53.0); Hemoglobin 8.3 g/dL (13.5-17.5)
[2024-12-02 09:23] VITALS: BP 116/75
[2024-12-02 11:11] LABS: Albumin, Blood 2.0 g/dL (3.4-5.0); Anion Gap 13 mmol/L (3-11); Blood Urea Nitrogen 25 mg/dL (8-24); CO2, Blood 25 mmol/L (21-32); Calcium, Blood 8.3 mg/dL (8.5-10.1); Chloride, Blood 102 mmol/L (98-108); Creatinine, Blood 0.82 mg/dL (0.60-1.20); Glucose, Blood 89 mg/dL (70-99); Magnesium, Blood 1.6 mg/dL (1.6-2.4); Phosphorus, Blood 2.7 mg/dL (2.5-4.9); Potassium, Blood 4.5 mmol/L (3.5-5.5); Sodium, Blood 135 mmol/L (136-145)
[2024-12-02] MEDS ORDERED: NS 1,000 ML IV SCH (12:00)
[2024-12-02] MEDS ORDERED: Magnesium Sulf 2 GM/Water 50ML 50 ML IV ONE (12:05)
[2024-12-02 15:57] VITALS: BP 108/75
--- NOTE | 2024-12-02 18:01 | NUR ---
SHIFT SUMMARY: NO NEW OR ACUTE CHANGES DURING THIS SHIFT. PLAN TO LOOK FOR SENIOR CARE PLACEMENT/ADULT HOME. PLAN OF CARE ONGOING AT THIS TIME.
[2024-12-02 20:13] VITALS: BP 118/69
[2024-12-03 03:45] VITALS: BP 107/72
--- NOTE | 2024-12-03 04:47 | NUR ---
SHIFT SUMMARY PATIENT A/OX4, NO ACUTE CHANGES THROUGHOUT THE SHIFT. PATIENT TOLERATING PO WITH NO N/V REPORTED. TUBE FEED HELD, PER PT REQUEST. ALL MEDICATIONS GIVEN PER EMAR. PT ABLE TO TAKE OXYCODONE WHOLE WITH WATER, BUT REFUSES TO TAKE OTHER MEDICATIONS PO. PT IND IN THE ROOM. CALL LIGHT IN REACH, BED IN LOWEST POSITION. WILL REPORT TO ONCOMING NURSE.
[2024-12-03 08:36] VITALS: BP 118/79
[2024-12-03 10:33] LABS: BASOPHILS ABSOLUTE AUTO 0.07 K/mm3 (0.00-0.23); BASOPHILS PERCENT AUTO 1 % (0-2); EOSINOPHILS ABSOLUTE AUTO 0.05 K/mm3 (0.00-0.68); EOSINOPHILS PERCENT AUTO 1 % (0-6); Hematocrit 27.3 % (37.0-53.0); Hemoglobin 8.7 g/dL (13.5-17.5); IMMATURE GRAN ABSOLUTE AUTO 0.05 K/mm3 (0.00-0.10); IMMATURE GRAN PERCENT AUTO 1 % (0-1); LYMPHOCYTES ABSOLUTE AUTO 1.25 K/mm3 (0.84-5.20); LYMPHOCYTES PERCENT AUTO 22 % (21-46); MONOCYTES ABSOLUTE AUTO 0.57 K/mm3 (0.16-1.47); MONOCYTES PERCENT AUTO 10 % (4-13); Mean Corpuscular HGB Conc 31.9 g/dL (31.5-36.5); Mean Corpuscular Volume 86 fL (80-100); NEUTROPHILS ABSOLUTE AUTO 3.68 K/mm3 (1.96-9.15); NEUTROPHILS PERCENT AUTO 65 % (41-73); NRBC ABSOLUTE 0.00 K/mm3 (0.00-0.02); NRBC Auto 0.0 /100 WBC (0.0-0.2); Platelet Count 351 K/mm3 (150-400); RDW Coefficient Variation 20.2 % (11.7-14.2); RDW Standard Deviation 62.1 fL (35.1-46.3)
[2024-12-03] MEDS ORDERED: Lidocaine 4% 1 Patch TOP SCH (11:00)
[2024-12-03 11:49] LABS: Albumin, Blood 2.1 g/dL (3.4-5.0); Anion Gap 8 mmol/L (3-11); Blood Urea Nitrogen 21 mg/dL (8-24); CO2, Blood 26 mmol/L (21-32); Calcium, Blood 8.2 mg/dL (8.5-10.1); Chloride, Blood 106 mmol/L (98-108); Creatinine, Blood 0.72 mg/dL (0.60-1.20); Glucose, Blood 93 mg/dL (70-99); Magnesium, Blood 2.0 mg/dL (1.6-2.4); Phosphorus, Blood 3.6 mg/dL (2.5-4.9); Potassium, Blood 4.0 mmol/L (3.5-5.5); Sodium, Blood 136 mmol/L (136-145)
--- NOTE | 2024-12-03 18:28 | NUR ---
SHIFT SUMMARY: NO NEW ACUTE CHANGES THIS SHIFT. AWAITING FOR IV ANTIBIOTICS TO BE FINISHED BEFORE LOOKING FOR PLACEMENT OPTIONS. PATIENT HAS BEEN COOPERATIVE WITH NURING CARE AND HAS NO NEEDS AT THIS TIME, WILL CONTINUE TO MONITOR.
[2024-12-03 20:24] VITALS: BP 100/61
[2024-12-04 03:06] VITALS: BP 114/75
--- NOTE | 2024-12-04 04:44 | NUR ---
SHIFT SUMMARY A/O X4- IND IN THE ROOM. NO ACUTE CHANGES THROUGHOUT SHIFT. PT CONTINUES TO TAKE MORE THAN 50% INTAKE BY MOUTH. NO FEEDING VIA TUBE THIS SHIFT. REFUSING MEDICATIONS PO, ALL MEDS EXCEPT OXICODONE GIVEN VIA JTUBE. VITAL SIGNS STABLE. PT CALLING APPROPRIATELY W/ CALL LIGHT IN REACH. BED IN LOWEST POSITION. WILL REPORT TO ONCOMING RN.
[2024-12-04 07:32] VITALS: BP 114/78
[2024-12-04 16:26] VITALS: BP 114/77
--- NOTE | 2024-12-04 17:13 | NUR ---
End of shift summary: Pt is alert and oriented x4; pleasant and cooperative with care. Pt continues with rash/blisters to right lower back and stomach d/t shingles and remains in isolation. Pt denies CP, SOB, N/V/D, but does have pain and is medicated per EMAR. All medications administered per EMAR via Peg tube except Oxycodone per pt preference. Pt independent in room; has been brining in outside food to enjoy and no tube feedings administered this shift. Pt utilizing call system appropriately; call light within reach and bed in lowest position. Will continue to monitor until next shift nurse arrives and report is given.
[2024-12-04 20:37] VITALS: BP 111/73
[2024-12-05 03:31] VITALS: BP 93/57
--- NOTE | 2024-12-05 06:04 | NUR ---
Shift Summary No acute changes. Meds given crushed through PEG tube except oxycodone as requested by pt. Pt eating regular diet yesterday and tonight and reports 'a little bit of coughing, not bad'. AOx4, independent in the room.
[2024-12-05] MEDS ORDERED: ASPERFLEX1 EACH TOP (13:01)
[2024-12-05] MEDS ORDERED: ASPERFLEX LIDOC15 GM TOP (13:02)
[2024-12-05] MEDS ORDERED: PREG300 PO (13:10)
[2024-12-05] MEDS ORDERED: SIME40L PT (13:12)
[2024-12-05] MEDS ORDERED: SODBIC650 PO (13:13)
--- NOTE | 2024-12-05 14:38 | NUR ---
SHIFT/DISCHARGE SUMMARY: PATIENT HAS HAD NO NEW CHANGES THIS SHIFT. PATIENT SHINGLE/RASH TO R SIDE/ABDOMEN SKIN DRY AND INTACT. PATIENT MEDICATED FOR PAIN PER EMAR c GOOD RESULT. PATIENT RECEIVED SCHEDULED MEDS PER EMAR, VIA PEG TUBE. PATIENT EATING AND DRINKING WELL WITHOUT ANY DIFFICULTY. PATIENT DENIES CP/PRESSURE, SOB, N/V AND DIZZINESS. VITAL SIGNS REVIEWED. PIV DC'D BY HERBERTH FLANAGAN. PATIENT DISCHARGE HOME c [facility]. DISCHARGE INSTRUCTIONS PACKET GIVEN TO PATIENT. PATIENT EDUCATED ON ADMITTING DX'S OF HYPONATREMIA-RESSOLVE, PEGTUBE/SELF CARE, F/U c PCP AND NEW RX. PATIENT VERBALIZED UNDERSTANDING AND NO FURTHER QUESTIONS. PATIENT HOME MEDS OXYCODONE (4 TABLET), ZOFRAN AND HARDSCRIPTS GIVEN TO PATIENT. RX WAS FAXED TO PATIENT PREFERRED [facility]AC[facility]. ALL PERSONAL BELONGINGS WERE SENT c PATIENT. PATIENT LEFT THE ROOM AT 1421 TRANSPORTED VIA WC BY HERBERTH FLANAGAN TO PATIENT ENTRANCE.
== END 2024-12-05 14:16 | disposition home health service (06) | DRG 640 ==
LOC: ER 23:17 → MEDS 23:18 → ENPENDDIS 12-05 11:41 → MEDS 12-05 14:16
PROVIDERS: Family Medicine; Internal Medicine; Student in an Organized Health Care Education/Training Program; ADMIT Student in an Organized Health Care Education/Training Program
DX: E87.1 Hypo-osmolality and hyponatremia (principal); E43 Unspecified severe protein-calorie malnutrition; J85.0 Gangrene and necrosis of lung; B20 Human immunodeficiency virus [HIV] disease; R64 Cachexia; Z68.1 Body mass index [BMI] 19.9 or less, adult; B02.8 Zoster with other complications; D84.9 Immunodeficiency, unspecified; G62.9 Polyneuropathy, unspecified; D63.8 Anemia in other chronic diseases classified elsewhere; F32.A Depression, unspecified; E53.8 Deficiency of other specified B group vitamins; F15.91 Other stimulant use, unspecified, in remission; Z79.891 Long term (current) use of opiate analgesic; Z79.899 Other long term (current) drug therapy
CPT/HCPCS: 36415; 71046; 80048; 80053; 80069; 82330; 82607; 82728; 82746; 83540; 83550; 83605; 83690; 83735; 84100; 84484; 85014; 85018; 85025; 86361; 87536; 93005; 93010; 94760; 96372; 96374; 97110; 97112; 97116; 97161; 97530; 99285-25; A9270; G0378; J0133; J1650; J1885; J2405; J2765; J3420; J3475; J7030; J7050